=== PATIENT | male | born 1955 | race Caucasian/White ===

== ENCOUNTER 2019-01-23 15:46 | Inpatient (IN) | payer MEDICARE ==
[2019-01-23] MEDS ORDERED: Ondansetron ODT 4 MG TAB PO PRN (17:28)
[2019-01-23] MEDS ORDERED: Acetaminophen 325 MG TAB PO PRN (17:28)
[2019-01-23] MEDS ORDERED: Dextrose 5% in Water 1,000 ML IV PRN (17:42)
[2019-01-23] MEDS ORDERED: Dextrose 50% Abboject 50 ML SYRINGE IVP PRN (17:42)
[2019-01-23 18:42] LABS: INR-International Normal Ratio 1.7; Prothrombin Time 19.6 SEC (12.0-14.7)
[2019-01-23] MEDS ORDERED: Warfarin Sodium 2 MG TAB PO SCH (20:00)
[2019-01-23] MEDS: Metoprolol Tartrate 50 MG TAB PO SCH (21:26)
[2019-01-23] MEDS: Atorvastatin Calcium 40 MG TAB PO SCH (21:26)
[2019-01-23] MEDS: Amiodarone 200 MG TAB PO SCH (21:26)
[2019-01-23] MEDS: HumuLIN 70/30 (300 UNITS/3 ML VIAL) SC SCH (21:27)
[2019-01-23] MEDS: Acetaminophen 325 MG TAB PO PRN (22:00)
[2019-01-24 05:48] LABS: INR-International Normal Ratio 1.6; PTT 38.4 SEC (22.9-36.1); Prothrombin Time 19.2 SEC (12.0-14.7)
[2019-01-24 05:52] LABS: Anion Gap 16 mmol/L (10-20); BUN (Urea Nitrogen) 31 mg/dL (8.4-25.7); Calc. Creatinine Clearance 84 mL/min (70-130); Calcium 8.8 mg/dL (7.8-10.44); Carbon Dioxide 25 mmol/L (23-31); Chloride 109 mmol/L (98-107); Estimated GFR-MDRD 40; Glucose 91 mg/dL (80-115); Potassium 4.5 mmol/L (3.5-5.1); Sodium 145 mmol/L (136-145)
[2019-01-24 05:58] LABS: #Basophils 0.1 thou/uL (0.0-0.2); #Lymphocytes 0.8 thou/uL (1.20-3.40); #Monocytes 0.6 thou/uL (0.11-0.59); #Neutrophils 4.5 thou/uL (1.40-6.50); %Eosinophils 0.3 % (0.0-10.0); %Lymphocytes 12.7 % (21.0-51.0); %Monocytes 10.2 % (0.0-10.0); %Neutrophils 75.8 % (42.0-75.0); Anisocytosis SLIGHT = 6-15 cells (100X) (0-5/hpf); Hemoglobin 11.9 g/dL (14.0-18.0); Hypochromia SLIGHT = 6-15 cells (100X) (0-5/hpf); MDiff Complete? YES; Mean Corpuscular HGB CONC 30.2 g/dL (32.0-36.0); Mean Corpuscular Hemoglobin 24.7 pg (27.0-31.0); Mean Corpuscular Volume 81.9 fL (78.0-98.0); Mean Platelet Volume 7.2 fL (7.4-10.4); Platelet Count 126 thou/uL (130-400); Platelet Morphology Comment Appears Decreased; Red Blood Cell (RBC) Count 4.83 mill/uL (4.70-6.10); White Blood Cell (WBC) Count 5.9 thou/uL (4.8-10.8)
--- NOTE | 2019-01-24 07:57 | HP ---
REASON FOR ADMISSION: Acute rehabilitation at [facility] due to CVA, physical deconditioning. HISTORY OF PRESENT ILLNESS: Mr. Tavares is a 63-year-old male with the history of CVA with residual deficits. The patient presented to the emergency room on 01/15 with family due to 2 day history of altered mental status, confusion, slurred speech, tremors, generalized weakness. Two days prior to that, the patient had an episode of fall where he was evaluated in the emergency room and had a negative ED workup. The patient was subsequently admitted this time to rule out acute CVA all his workup including a CT Brain, carotid doppler and MRI were negative. On 01/17/2019 he returned to his baseline mentally but was very deconditioned. The patient had refused to go to assisted facility upon discharge and he was subsequently discharged home with his sister, primary medical power of divorce attorney. On day of admission. He was still very weak, much better than initially what he was prior to admission. His INR upon day of discharge was 4.2. The Coumadin was recommended to be held for 2 days and restart. On January 20, the patient presented to my office with his sister to establish care and generalized weakness. Sister states he had one more episode of fall at her home. She states she is trying to move him from [place] to her home in [place] where she is able to take better care of him. His sister notes he is very deconditioned, very weak and very difficult for her to take care of. In my office, patient agreed to come for inpatient rehabilitation at [facility]. The patient could not be admitted to swing bed on Saturday 01/20 due to insurance prior authorization needed and that was cleared today, Wednesday. Upon evaluation of the patient today, he states he is still very weak, but little bit better. He is glad to be in facility to have skilled rehabilitation. He denies any recurrent falls. Denies chest pain, shortness of breath, palpitations or dizziness. PAST MEDICAL HISTORY: Diabetes type 2, hypertension, atrial fibrillation, rate controlled with pacemaker, long-term anticoagulant use, chronic venous stasis dermatitis bilaterally, CHF, history of CVA. PAST SURGICAL HISTORY: CABG,AAA repair, hiatal hernia. CODE STATUS: DNR. SOCIAL HISTORY: The patient lives in an assisted living facility. He denies illicit drug use. He denies alcohol use. MEDICATIONS: 1. Acetaminophen 650 mg q.4. 2. Amiodarone 200 b.i.d. 3. Aspirin 81 daily. 4. Lipitor 40 at bedtime. 5. Pepcid 20 b.i.d. 6. Imdur 60 daily. 7. Lopressor 100 daily. 8. MiraLAX 17 p.r.n. 9. K-Dur 20 mEq daily. 10. Zoloft 50 daily. 11. Furosemide 40 daily. 12. Vitamin E 400 units daily. 13. Warfarin 2 mg two times x6 days, 4 mg x1 day. PHYSICAL EXAMINATION: VITAL SIGNS: Temperature 97.8, pulse 60, respiration 18, O2 saturation on room air 98%, blood pressure 150/80. GENERAL: The patient is a very pleasant 63-year-old male, alert, awake, oriented x3. No apparent distress. HEENT: Normocephalic, atraumatic. EOM intact. Grossly normal vision. Grossly normal hearing. NECK: Supple. No JVD. RESPIRATORY: Clear to auscultation bilaterally. No wheezes, no rales. CARDIOVASCULAR: S1, S2. No murmurs. ABDOMINAL: Very large non tender abdominal hernia, positive bowel sounds NEUROLOGICAL: No focal deficits. Cranial nerves 2 through 12 grossly intact. Diffuse intentional tremor to upper extremities. SKIN: Severe hemosiderin deposits to bilateral lower extremities, chronic venous stasis. PSYCHIATRIC: Flat affect. REVIEW OF SYSTEMS: GENERAL: Complains of fatigue. CARDIOVASCULAR: Denies chest pain, palpitation, or edema. RESPIRATORY: Denies cough, congestion, shortness of breath or wheezing. EYES: Denies pain or drainage. ENT: Denies nasal congestion or rhinorrhea. ABDOMEN: Denies nausea, vomiting, or diarrhea. GENITOURINARY: Denies dysuria. SKIN: Complains of some bruising to all primary extremities. MUSCULOSKELETAL: Complains of generalized weakness. NEUROLOGICAL: Complains of generalized weakness and tremor. PSYCHOLOGIC: Defers complains of depression. ASSESSMENT: 1. Physical debility. 2. Diabetes type 2. 3. Hypertension. 4. Congestive heart failure. 5. Elevated INR. 6. Atrial fibrillation, rate controlled on pacemaker. 7. Hypertension. 8. Chronic kidney disease. 9. Chronic venous stasis, bilateral lower extremity. PLAN: The patient is a 63-year-old male who will be admitted to [facility] for acute rehabilitation. We will consult Physical Therapy for gait strengthening. We will consult Occupational Therapy to help with activities of daily living. We will place the patient on Accu-Cheks, fasting. We will continue patient on Coumadin with daily INR checks. We will place the patient on Pepcid b.i.d. for GI prophylaxis. We will monitor the patient closely for any hemodynamic instability. ESTIMATED LENGTH OF STAY: 2-3 weeks. CODE STATUS: The patient is DNR. Job ID: [id number] [facility]
[2019-01-24] MEDS: Torsemide 20 MG TAB PO SCH (08:31)
[2019-01-24] MEDS: Amiodarone 200 MG TAB PO SCH ×2 (08:31→20:37)
[2019-01-24] MEDS: Isosorbide Mononitrate (ER) 30 MG TAB PO SCH (08:31)
[2019-01-24] MEDS: Metoprolol Tartrate 50 MG TAB PO SCH ×2 (08:31→20:38)
[2019-01-24] MEDS: Aspirin Chewable 81 MG TAB PO SCH (08:31)
[2019-01-24] MEDS: Famotidine 20 MG TAB PO SCH (08:31)
[2019-01-24] MEDS: Potassium Chloride 20 MEQ TAB PO SCH (08:31)
[2019-01-24] MEDS: HumuLIN 70/30 (300 UNITS/3 ML VIAL) SC SCH ×2 (08:32→20:37)
[2019-01-24] MEDS ORDERED: Prevnar 13-Val Conj/PF 0.5 ML SYRINGE IM ONE (09:00)
[2019-01-24] MEDS ORDERED: Warfarin Sodium 2 MG TAB PO SCH (17:00)
[2019-01-24] MEDS: Atorvastatin Calcium 40 MG TAB PO SCH (20:37)
[2019-01-24] MEDS: Acetaminophen 325 MG TAB PO PRN (20:38)
[2019-01-25] MEDS: Isosorbide Mononitrate (ER) 30 MG TAB PO SCH (08:27)
[2019-01-25] MEDS: Potassium Chloride 20 MEQ TAB PO SCH (08:27)
[2019-01-25] MEDS: Famotidine 20 MG TAB PO SCH (08:27)
[2019-01-25] MEDS: Aspirin Chewable 81 MG TAB PO SCH (08:28)
[2019-01-25] MEDS: Torsemide 20 MG TAB PO SCH (08:28)
[2019-01-25] MEDS: Metoprolol Tartrate 50 MG TAB PO SCH ×2 (08:28→20:37)
[2019-01-25] MEDS: HumuLIN 70/30 (300 UNITS/3 ML VIAL) SC SCH ×2 (08:28→20:37)
[2019-01-25] MEDS: Amiodarone 200 MG TAB PO SCH ×2 (08:31→20:36)
[2019-01-25] MEDS ORDERED: Warfarin Sodium 2 MG TAB PO SCH (17:00)
[2019-01-25] MEDS: Warfarin Sodium 2 MG TAB PO SCH (17:10)
[2019-01-25] MEDS: Atorvastatin Calcium 40 MG TAB PO SCH (20:37)
[2019-01-25] MEDS: Acetaminophen 325 MG TAB PO PRN (20:37)
[2019-01-26 05:56] LABS: INR-International Normal Ratio 1.7; Prothrombin Time 20.1 SEC (12.0-14.7)
[2019-01-26] MEDS: HumuLIN 70/30 (300 UNITS/3 ML VIAL) SC SCH ×2 (08:25→20:23)
[2019-01-26] MEDS: Aspirin Chewable 81 MG TAB PO SCH (08:26)
[2019-01-26] MEDS: Torsemide 20 MG TAB PO SCH (08:26)
[2019-01-26] MEDS: Amiodarone 200 MG TAB PO SCH ×2 (08:26→20:21)
[2019-01-26] MEDS: Isosorbide Mononitrate (ER) 30 MG TAB PO SCH (08:26)
[2019-01-26] MEDS: Potassium Chloride 20 MEQ TAB PO SCH (08:26)
[2019-01-26] MEDS: Famotidine 20 MG TAB PO SCH (08:27)
[2019-01-26] MEDS: Metoprolol Tartrate 50 MG TAB PO SCH ×2 (08:27→20:20)
[2019-01-26] MEDS ORDERED: Warfarin Sodium 2 MG TAB PO SCH ×2 (10:32)
[2019-01-26] MEDS: Warfarin Sodium 2 MG TAB PO SCH (17:07)
[2019-01-26] MEDS: Atorvastatin Calcium 40 MG TAB PO SCH (20:21)
[2019-01-26] MEDS: Acetaminophen 325 MG TAB PO PRN (23:15)
[2019-01-27 05:20] LABS: INR-International Normal Ratio 2.1; Prothrombin Time 23.5 SEC (12.0-14.7)
[2019-01-27] MEDS: Famotidine 20 MG TAB PO SCH (08:15)
[2019-01-27] MEDS: Torsemide 20 MG TAB PO SCH (08:15)
[2019-01-27] MEDS: Metoprolol Tartrate 50 MG TAB PO SCH ×2 (08:16→21:15)
[2019-01-27] MEDS: Aspirin Chewable 81 MG TAB PO SCH (08:16)
[2019-01-27] MEDS: Potassium Chloride 20 MEQ TAB PO SCH (08:16)
[2019-01-27] MEDS: Isosorbide Mononitrate (ER) 30 MG TAB PO SCH (08:16)
[2019-01-27] MEDS: Amiodarone 200 MG TAB PO SCH ×2 (08:16→21:15)
[2019-01-27] MEDS: HumuLIN 70/30 (300 UNITS/3 ML VIAL) SC SCH ×2 (08:19→21:14)
[2019-01-27] MEDS: Warfarin Sodium 2 MG TAB PO SCH (17:06)
[2019-01-27] MEDS: Atorvastatin Calcium 40 MG TAB PO SCH (21:15)
[2019-01-27] MEDS: Acetaminophen 325 MG TAB PO PRN (23:57)
[2019-01-28 05:41] LABS: INR-International Normal Ratio 2.2
[2019-01-28] MEDS: Isosorbide Mononitrate (ER) 30 MG TAB PO SCH (08:52)
[2019-01-28] MEDS: HumuLIN 70/30 (300 UNITS/3 ML VIAL) SC SCH ×2 (08:52→21:19)
[2019-01-28] MEDS: Amiodarone 200 MG TAB PO SCH ×2 (08:53→21:18)
[2019-01-28] MEDS: Torsemide 20 MG TAB PO SCH (08:53)
[2019-01-28] MEDS: Aspirin Chewable 81 MG TAB PO SCH (08:53)
[2019-01-28] MEDS: Famotidine 20 MG TAB PO SCH (08:53)
[2019-01-28] MEDS: Metoprolol Tartrate 50 MG TAB PO SCH ×2 (08:53→21:18)
[2019-01-28] MEDS: Potassium Chloride 20 MEQ TAB PO SCH (08:54)
[2019-01-28] MEDS: Warfarin Sodium 2 MG TAB PO SCH (17:05)
[2019-01-28] MEDS: Atorvastatin Calcium 40 MG TAB PO SCH (21:18)
[2019-01-28] MEDS: Acetaminophen 325 MG TAB PO PRN (21:25)
[2019-01-29 05:42] LABS: INR-International Normal Ratio 2.3; Prothrombin Time 25.4 SEC (12.0-14.7)
[2019-01-29] MEDS: Aspirin Chewable 81 MG TAB PO SCH (08:59)
[2019-01-29] MEDS: Torsemide 20 MG TAB PO SCH (08:59)
[2019-01-29] MEDS: Potassium Chloride 20 MEQ TAB PO SCH (08:59)
[2019-01-29] MEDS: Metoprolol Tartrate 50 MG TAB PO SCH ×2 (08:59→20:40)
[2019-01-29] MEDS: HumuLIN 70/30 (300 UNITS/3 ML VIAL) SC SCH ×2 (09:00→20:42)
[2019-01-29] MEDS: Isosorbide Mononitrate (ER) 30 MG TAB PO SCH (09:00)
[2019-01-29] MEDS: Amiodarone 200 MG TAB PO SCH ×2 (09:00→20:40)
[2019-01-29] MEDS: Famotidine 20 MG TAB PO SCH (09:00)
[2019-01-29] MEDS: Warfarin Sodium 2 MG TAB PO SCH (17:05)
[2019-01-29] MEDS: Atorvastatin Calcium 40 MG TAB PO SCH (20:40)
[2019-01-29] MEDS: Acetaminophen 325 MG TAB PO PRN (20:40)
[2019-01-30 05:31] LABS: INR-International Normal Ratio 2.4; Prothrombin Time 25.9 SEC (12.0-14.7)
[2019-01-30] MEDS ORDERED: Sodium Chloride Irrig Solution 250 ML BOT ONE (10:07)
[2019-01-30] MEDS: Metoprolol Tartrate 50 MG TAB PO SCH ×2 (10:46→20:31)
[2019-01-30] MEDS: Potassium Chloride 20 MEQ TAB PO SCH (10:46)
[2019-01-30] MEDS: Amiodarone 200 MG TAB PO SCH ×2 (10:46→20:31)
[2019-01-30] MEDS: Aspirin Chewable 81 MG TAB PO SCH (10:46)
[2019-01-30] MEDS: Torsemide 20 MG TAB PO SCH (10:46)
[2019-01-30] MEDS: Isosorbide Mononitrate (ER) 30 MG TAB PO SCH (10:46)
[2019-01-30] MEDS: HumuLIN 70/30 (300 UNITS/3 ML VIAL) SC SCH ×2 (10:47→20:34)
[2019-01-30] MEDS: Famotidine 20 MG TAB PO SCH (10:47)
[2019-01-30] MEDS: Warfarin Sodium 2 MG TAB PO SCH (17:03)
[2019-01-30] MEDS: Acetaminophen 325 MG TAB PO PRN (20:30)
[2019-01-30] MEDS: Atorvastatin Calcium 40 MG TAB PO SCH (20:31)
[2019-01-31] MEDS: HumuLIN 70/30 (300 UNITS/3 ML VIAL) SC SCH ×2 (08:09→20:07)
[2019-01-31] MEDS: Aspirin Chewable 81 MG TAB PO SCH (08:10)
[2019-01-31] MEDS: Amiodarone 200 MG TAB PO SCH ×2 (08:10→20:08)
[2019-01-31] MEDS: Famotidine 20 MG TAB PO SCH (08:10)
[2019-01-31] MEDS: Metoprolol Tartrate 50 MG TAB PO SCH ×2 (08:10→20:09)
[2019-01-31] MEDS: Torsemide 20 MG TAB PO SCH (08:10)
[2019-01-31] MEDS: Isosorbide Mononitrate (ER) 30 MG TAB PO SCH (08:11)
[2019-01-31] MEDS: Potassium Chloride 20 MEQ TAB PO SCH (08:12)
[2019-01-31 14:38] LABS: Anion Gap 14 mmol/L (10-20); BUN (Urea Nitrogen) 34 mg/dL (8.4-25.7); Calc. Creatinine Clearance 65 mL/min (70-130); Carbon Dioxide 27 mmol/L (23-31); Chloride 106 mmol/L (98-107); Estimated GFR-MDRD 29; Potassium 4.2 mmol/L (3.5-5.1); Sodium 143 mmol/L (136-145)
[2019-01-31 14:57] LABS: Glucose 55 mg/dL (80-115)
[2019-01-31 14:58] LABS: #Basophils 0.1 thou/uL (0.0-0.2); #Monocytes 0.8 thou/uL (0.11-0.59); %Basophils 1.1 % (0.0-1.0); %Eosinophils 0.6 % (0.0-10.0); %Lymphocytes 14.4 % (21.0-51.0); %Monocytes 11.4 % (0.0-10.0); %Neutrophils 72.5 % (42.0-75.0); Anisocytosis SLIGHT = 6-15 cells (100X) (0-5/hpf); Hemoglobin 12.2 g/dL (14.0-18.0); Hypochromia SLIGHT = 6-15 cells (100X) (0-5/hpf); MDiff Complete? YES; Mean Corpuscular HGB CONC 30.6 g/dL (32.0-36.0); Mean Corpuscular Hemoglobin 24.9 pg (27.0-31.0); Mean Corpuscular Volume 81.2 fL (78.0-98.0); Mean Platelet Volume 7.7 fL (7.4-10.4); Ovalocytes SLIGHT = 2-5 cells (100X) (0-1/hpf); Platelet Count 175 thou/uL (130-400); Platelet Morphology Comment Appears Adequate; RBC Distribution Width 18.5 % (11.5-14.5); White Blood Cell (WBC) Count 6.9 thou/uL (4.8-10.8)
[2019-01-31] MEDS: Warfarin Sodium 2 MG TAB PO SCH (17:09)
[2019-01-31] MEDS: Atorvastatin Calcium 40 MG TAB PO SCH (20:09)
[2019-01-31] MEDS: Acetaminophen 325 MG TAB PO PRN (21:04)
[2019-02-01 05:15] LABS: INR-International Normal Ratio 3.1; Prothrombin Time 31.7 SEC (12.0-14.7)
[2019-02-01] MEDS: Potassium Chloride 20 MEQ TAB PO SCH (08:11)
[2019-02-01] MEDS: Isosorbide Mononitrate (ER) 30 MG TAB PO SCH (08:11)
[2019-02-01] MEDS: Metoprolol Tartrate 50 MG TAB PO SCH ×2 (08:11→20:38)
[2019-02-01] MEDS: Torsemide 20 MG TAB PO SCH (08:11)
[2019-02-01] MEDS: HumuLIN 70/30 (300 UNITS/3 ML VIAL) SC SCH ×2 (08:12→20:38)
[2019-02-01] MEDS: Famotidine 20 MG TAB PO SCH (08:12)
[2019-02-01] MEDS: Amiodarone 200 MG TAB PO SCH ×2 (08:12→20:39)
[2019-02-01] MEDS: Aspirin Chewable 81 MG TAB PO SCH (08:12)
[2019-02-01] MEDS: Warfarin Sodium 2 MG TAB PO SCH (17:03)
[2019-02-01] MEDS: Atorvastatin Calcium 40 MG TAB PO SCH (20:39)
[2019-02-01] MEDS: Acetaminophen 325 MG TAB PO PRN (20:39)
[2019-02-02] MEDS: Isosorbide Mononitrate (ER) 30 MG TAB PO SCH (08:17)
[2019-02-02] MEDS: Potassium Chloride 20 MEQ TAB PO SCH (08:17)
[2019-02-02] MEDS: Amiodarone 200 MG TAB PO SCH ×2 (08:17→20:43)
[2019-02-02] MEDS: Metoprolol Tartrate 50 MG TAB PO SCH ×2 (08:17→20:43)
[2019-02-02] MEDS: Famotidine 20 MG TAB PO SCH (08:17)
[2019-02-02] MEDS: Torsemide 20 MG TAB PO SCH (08:17)
[2019-02-02] MEDS: Aspirin Chewable 81 MG TAB PO SCH (08:18)
[2019-02-02] MEDS: HumuLIN 70/30 (300 UNITS/3 ML VIAL) SC SCH ×2 (08:18→20:42)
[2019-02-02 11:19] VITALS: BMI 34.9
[2019-02-02 13:15] LABS: INR-International Normal Ratio 2.9; Prothrombin Time 30.1 SEC (12.0-14.7)
[2019-02-02] MEDS: Warfarin Sodium 2 MG TAB PO SCH (17:15)
[2019-02-02] MEDS: Atorvastatin Calcium 40 MG TAB PO SCH (20:43)
[2019-02-02] MEDS: Acetaminophen 325 MG TAB PO PRN (23:42)
[2019-02-03 07:36] LABS: INR-International Normal Ratio 2.8; Prothrombin Time 29.6 SEC (12.0-14.7)
[2019-02-03] MEDS: Isosorbide Mononitrate (ER) 30 MG TAB PO SCH (09:28)
[2019-02-03] MEDS: HumuLIN 70/30 (300 UNITS/3 ML VIAL) SC SCH (09:28)
[2019-02-03] MEDS: Aspirin Chewable 81 MG TAB PO SCH (09:28)
[2019-02-03] MEDS: Metoprolol Tartrate 50 MG TAB PO SCH (09:28)
[2019-02-03] MEDS: Potassium Chloride 20 MEQ TAB PO SCH (09:28)
[2019-02-03] MEDS: Torsemide 20 MG TAB PO SCH (09:28)
[2019-02-03] MEDS: Amiodarone 200 MG TAB PO SCH (09:28)
[2019-02-03] MEDS: Famotidine 20 MG TAB PO SCH (09:28)
[2019-02-03 10:01] VITALS: BP 146/75; TEMP 96.6
--- NOTE | 2019-02-03 21:29 | DIS ---
DATE OF ADMISSION: 01/23/2019 DATE OF DISCHARGE: 02/03/2019 PRIMARY CARE PHYSICIAN: Buddy Bell MD DISCHARGE DIAGNOSES: 1. Physical deconditioning, much improved. 2. Diabetes type 2. 3. Elevated INR, resolved. 4. Chronic atrial fibrillation, rate controlled on pacemaker. 5. Congestive heart failure. 6. Chronic kidney disease. 7. Chronic venous statis, bilateral lower extremities. DISCHARGE DISPOSITION: Home with sister. DISCHARGE MEDICATIONS: 1. Amiodarone 200 b.i.d. 2. Aspirin 81 daily. 3. Lipitor 40 daily. 4. Insulin Humulin 70/30, 20 units b.i.d. 5. Imdur ER 60 daily. 6. Lopressor 50 b.i.d. 7. K-Dur 20 daily. 8. Zoloft 50 daily. 9. Torsemide 40 daily. 10. Warfarin 4 mg Wednesday and Wednesday, 2 mg Wednesday, Wednesday, , Wednesday, Wednesday. DISCHARGE INSTRUCTIONS: [facility] to start physical therapy and occupational therapy. The patient to ambulate with four-wheeled walker at all times. Serial Coumadin weekly. The patient is to follow up with [facility] and pot fireman, and follow up with PCP within one week. Diet, diabetic diet, low-sodium diet, fluid restriction and a Coumadin-conscious diet. BRIEF HOSPITAL COURSE: Mr. Tavares is a 63-year-old male who was admitted initially to [facility] in [place], January 15 due to altered mental status, slurring of his speech, weakness, and recurrent falls. The patient had an extensive workup done to rule out a CVA and all imaging studies were negative with CVA workup. He returned to his mental baseline, January 17, but was noted to be physically deconditioned. He is on-term Coumadin and upon discharge, his INR was elevated at 4.2. The patient initially declined rehabilitation and was discharged home with his sister. Upon moving in with his sister, he was very deconditioned, he had episodes of falls, and sister was unable to care for him, so he was subsequently admitted for skilled rehabilitation here at [facility] on January 23. The patient was able to participate in physical therapy. He progressed nicely. On day of discharge, February 03, he was able to ambulate with a rolling walker about 650 feet without any interruption, without any pain. The patient was deemed stable and progressed enough to continue physical therapy at his home. He was discharged back to his home with his sister in a stable condition. During hospitalization, his INR was monitored closely and his Coumadin was adjusted. On day of discharge, his INR now was 2.8. Job ID: [id number]
[2019-02-05] MEDS ORDERED: Warfarin Sodium 2 MG TAB PO SCH ×2 (17:00)
== END 2019-02-03 12:38 | disposition home or self-care (01) | DRG 948 ==
LOC: MADMS 15:46
PROVIDERS: ADMIT Family Medicine; ATTEND Family Medicine
DX: R53.81 Other malaise (principal); I13.0 Hypertensive heart and chronic kidney disease with heart failure and stage 1 through stage 4 chronic kidney disease, or unspecified chronic kidney disease; E11.22 Type 2 diabetes mellitus with diabetic chronic kidney disease; I50.9 Heart failure, unspecified; R53.1 Weakness; I48.91 Unspecified atrial fibrillation; Z66 Do not resuscitate; N18.9 Chronic kidney disease, unspecified; I87.8 Other specified disorders of veins; I69.398 Other sequelae of cerebral infarction; Z95.0 Presence of cardiac pacemaker; Z95.1 Presence of aortocoronary bypass graft; Z79.82 Long term (current) use of aspirin; Z79.02 Long term (current) use of antithrombotics/antiplatelets; Z79.899 Other long term (current) drug therapy
CPT/HCPCS: 36415; 36416; 80048; 85025; 85610; 85730; 87070; 87077; 87186; 87205; 90471; 90670; G0009; J1815

== ENCOUNTER 2019-02-15 13:33 | Outpatient (CLI) | payer MEDICARE ==
[2019-02-15 13:55] LABS: Prothrombin Time 41.4 SEC (12.0-14.7)
[2019-02-15 14:02] LABS: INR-International Normal Ratio 4.4
== END 2019-02-15 13:34 | disposition home or self-care (01) ==
LOC: MADLAB 13:33
PROVIDERS: ATTEND Family Medicine
DX: Z51.81 Encounter for therapeutic drug level monitoring (principal); Z79.01 Long term (current) use of anticoagulants
CPT/HCPCS: 36415; 85610

== ENCOUNTER 2019-03-16 14:12 | Emergency (ER) | payer MEDICARE ==
--- NOTE | 2019-03-16 16:50 | RAD ---
RADIOGRAPH CHEST 1 VIEW: DATE: 03/16/2019 TIME: 4:47 PM HISTORY: 63-year-old male with dyspnea and altered mental state. Rule out aspiration. COMPARISON: 02/10/2018 FINDINGS: Pulmonary venous congestion. Interval decrease in size of previously demonstrated right pleural effus ion, now probably small. Apparent cardiomegaly. Sternotomy wires. No pneumothorax. IMPRESSION: 1. Evidence for mild congestive heart failure. 2. Interval decrease in volume of right pleural effusion.
[2019-03-16] MEDS ORDERED: Furosemide 40 MG/4 ML VIAL ONE (17:10)
--- NOTE | 2019-03-16 17:19 | CT ---
CT BRAIN NONCONTRAST: DATE: 03/16/2019 HISTORY: 63-year-old male with altered mental status. Status post trauma due to fall several times. COMPARISON: 01/15/2019 FINDINGS: The charge histotechnologist has stated that because of patient's kyphosis, she was unable to include the enti re brain on this scan. This patient was scanned twice, and both sets of images have been submitted. The entire brain was adequately scan on the previous CT. However, on the 2 scans performed today, the anterior third of the brain, mostly in the left side, are excluded from the [id number], and cannot be evaluated. Again noted is the moderate sized old right parietal region of encephalomalacia and gliosis. Ventricles are normal in size and configuration. No acute fracture of the right side of the calvarium. No interval change in the visualized portions. No acute intracranial hemorrhage yesi ntified. IMPRESSION: 1. Poor positioning such that at least third of the brain is not imaged. 2. Moderately large old infarction in right middle cerebral artery territory. 3. No acute intracranial findings within visualized portions of the brain.
[2019-03-16 17:51] LABS: ALT (SGPT) 34 U/L (8-55); AST (SGOT) 84 U/L (5-34); Albumin 3.4 g/dL (3.4-4.8); Alkaline Phosphatase 90 U/L (40-110); Anion Gap 16 mmol/L (10-20); BUN (Urea Nitrogen) 33 mg/dL (8.4-25.7); Bilirubin, Total 1.5 mg/dL (0.2-1.2); CK (CPK) 609 U/L (30-200); Calc. Creatinine Clearance 0 mL/min (70-130); Carbon Dioxide 26 mmol/L (23-31); Chloride 107 mmol/L (98-107); Estimated GFR-MDRD 27; Globulin 4.1 g/dL (2.4-3.5); Glucose 97 mg/dL (80-115); Potassium 3.8 mmol/L (3.5-5.1); Protein, Total 7.5 g/dL (5.8-8.1); Sodium 145 mmol/L (136-145)
[2019-03-16 17:56] LABS: #Basophils 0.1 thou/uL (0.0-0.2); #Lymphocytes 0.9 thou/uL (1.20-3.40); #Monocytes 0.8 thou/uL (0.11-0.59); #Neutrophils 5.5 thou/uL (1.40-6.50); %Basophils 0.9 % (0.0-1.0); %Eosinophils 0.1 % (0.0-10.0); %Lymphocytes 12.5 % (21.0-51.0); %Monocytes 10.8 % (0.0-10.0); %Neutrophils 75.7 % (42.0-75.0); Hemoglobin 10.8 g/dL (14.0-18.0); Hypochromia SLIGHT = 6-15 cells (100X) (0-5/hpf); MDiff Complete? YES; Mean Corpuscular HGB CONC 28.4 g/dL (32.0-36.0); Mean Platelet Volume 8.1 fL (7.4-10.4); Platelet Count 178 thou/uL (130-400); Platelet Morphology Comment Appears Adequate; Red Blood Cell (RBC) Count 4.31 mill/uL (4.70-6.10); White Blood Cell (WBC) Count 7.3 thou/uL (4.8-10.8)
[2019-03-16 18:06] LABS: CKMB 5.1 ng/mL (0-6.6)
== END 2019-03-16 18:46 | disposition short-term general hospital (02) ==
LOC: MADERS 14:12
DX: I95.1 Orthostatic hypotension (principal); I11.0 Hypertensive heart disease with heart failure; I50.9 Heart failure, unspecified; J90 Pleural effusion, not elsewhere classified; R79.89 Other specified abnormal findings of blood chemistry; E11.9 Type 2 diabetes mellitus without complications; I25.10 Atherosclerotic heart disease of native coronary artery without angina pectoris; I49.9 Cardiac arrhythmia, unspecified; I48.91 Unspecified atrial fibrillation; E78.5 Hyperlipidemia, unspecified; F32.9 Major depressive disorder, single episode, unspecified; Z79.899 Other long term (current) drug therapy; Z79.4 Long term (current) use of insulin; Z86.73 Personal history of transient ischemic attack (TIA), and cerebral infarction without residual deficits
CPT/HCPCS: 36416; 70450; 71045; 80053; 82550; 82553; 83880; 84443; 84484; 85025; 93005; 94760; 96374; 36415-59; J1940